=== PATIENT | male | born 1960 | race Caucasian/White ===

== ENCOUNTER 2018-01-31 12:09 | Outpatient (CLI) | END 2018-01-31 12:10 | disposition home or self-care (01) | LOC: FCC-LAB 12:09 | PROVIDERS: ATTEND Family Medicine | DX: E74.39 Other disorders of intestinal carbohydrate absorption (principal); E78.2 Mixed hyperlipidemia; I10 Essential (primary) hypertension | CPT/HCPCS: 36415; 80053; 83036 ==

== ENCOUNTER 2018-02-01 07:59 | Outpatient (CLI) | END 2018-02-01 08:00 | disposition home or self-care (01) | LOC: CAR 07:59 | PROVIDERS: ATTEND Family Medicine | DX: E74.39 Other disorders of intestinal carbohydrate absorption (principal); R73.02 Impaired glucose tolerance (oral); I10 Essential (primary) hypertension | CPT/HCPCS: 93005; 93010 ==

== ENCOUNTER 2018-08-14 10:40 | Outpatient (CLI) | END 2018-08-14 10:41 | disposition home or self-care (01) | LOC: FCC-LAB 10:40 | PROVIDERS: ATTEND Family Medicine | DX: Z00.00 Encounter for general adult medical examination without abnormal findings (principal); E78.2 Mixed hyperlipidemia; I10 Essential (primary) hypertension | CPT/HCPCS: 36415; 80053; 80061; 83036; 85025 ==

== ENCOUNTER 2018-11-03 13:13 | Outpatient (CLI) | END 2018-11-03 13:14 | disposition home or self-care (01) | LOC: LAB 13:13 → FCC-LAB 13:14 | PROVIDERS: ATTEND Family Medicine | DX: R68.89 Other general symptoms and signs (principal); R50.9 Fever, unspecified; R11.2 Nausea with vomiting, unspecified | CPT/HCPCS: 87502 ==